=== PATIENT | male | born 1980 | race Caucasian/White ===

== ENCOUNTER 2023-12-22 07:51 | Outpatient (CLI) | payer OTHER, BC, SELFPAY ==
--- NOTE | ~2023-12-22 | CT_ITS ---
CT of the Abdomen: Indication: Renal mass Technique: 2.5 mm axial scans were obtained through the abdomen prior to and following intravenous a dministration of 100 cc of Omnipaque 350. Dose reduction technique was used on this scan by utilizing automated exposure control and iterative reconstruction technique. The dose-length product (DLP) was 2200.67 mGy-cm. Findings: Scans through the lung bases are unremarkable. The liver, spleen, pancreas, gallbladder, and adrenal glands are within normal limits. There is a 10 mm mass at the anterior margin of the right kidney, without distinct postcontrast enhancement (series 7 image 92). There is an additional 14 mm mass at the mid pole right kidney, partially exophytic, al so without apparent enhancement (series 7 image 1 7). Additional 7 mm left renal lesion is also witho ut apparent enhancement (series 7 image 102). No evidence of aortic aneurysm. No lymphadenopathy. Visualized bowel loops are unremarkable. No ascites. Impression: Small bilateral renal lesions, as above, without apparent enhancement, therefore most compatible with small simple cysts. Given small size, consider follow-up exam in one year to further ensure stabilit y. Reviewed, dictated and finalized at location M. Impression: Small bilateral renal lesions, as above, without apparent enhancement, therefor e most compatible with small simple cysts. Given small size, consider follow-up exam in one year to further ensure stability.
[2023-12-22 11:03] LABS: Estimated Glomerular Filt Rate > 60
== END 2023-12-22 07:52 | disposition home or self-care (01) ==
PROVIDERS: PCP Family Medicine; Visit Provider Urology
DX: N28.89 Other specified disorders of kidney and ureter (principal)
CPT/HCPCS: 74170; Q9967

== ENCOUNTER 2025-01-02 08:25 | Outpatient (CLI) | payer OTHER, SELFPAY ==
--- NOTE | ~2025-01-02 | CT_ITS ---
CT of the Abdomen: Indication: Renal mass COMPARISON: 12/22/2023 TECHNIQUE: Axial images of the abdomen were obtained before and after infusion of [100] cc of Isovue 300. Dose lowering technique and dose optimization was utilized. FINDINGS: [The lung bases are clear.] [The liver parenchyma is unremarkable.] [No intrahepatic mass or ductal dilatation is evident.] [The gallbladder is normal in appearance.] [The pancreas is unremarkable.] [The spleen is normal in size.] [The adrenal glands are symmetric in size.] [The kidneys demonstrate symmetric uptake of contrast.] 11 mm mass in the anterior margin of the right kidney is stable measured on axial image 80 previously measured 10 mm. Within the midpole is a 13.5 mm mass unchanged. Mass within the midpole of the left kidney is stable measuring 10 mm. [There is no intrarenal stone or hydronephrosis.] [The stomach and visualized small and large bowel loops are unremarkable.] [No free intraperitoneal fluid or air is evident.] [There is no pathologically enlarged lymphadenopathy.] [The aorta is normal in caliber and patency.] [The mesenteric arteries and renal arteries demonstrate normal caliber and patency.] [The lower thoracic and visualized lumbar vertebrae are in normal alignment.] IMPRESSION: 1. Nonenhancing lesions within the kidneys bilaterally are stable. Reviewed, dictated and finalized at location S.
--- OUTSIDE RECORDS SUMMARY | 2025-01-02 08:37 | XMS_ITS | Clinical Summary ---
Author Organization [facility] Address [address] [place] [address] Care Team Providers Care Supervisor Picking Crew Name Role Phone Eric Cunningham MD Primary Care Provider [phone] Allergies Active Allergy Reactions Criticality Noted Date Comments Sertraline Dizziness Low 08/07/2018 dizzy Topiramate Rash,Other (See comments) High 10/12/2021 Neurological issues Medications BD Luer-Keanu Syringe 3 mL 22 x 1 1/2 syringe Inject 200 mg into the muscle as instructed every 2 (two) weeks 12 each 3 Active omeprazole (PriLOSEC) 20 mg capsule TAKE 1 CAPSULE BY MOUTH EVERY DAY 90 capsule 1 5 Active lisinopriL (PRINIVIL,ZESTR IL) 20 mg tablet TAKE 1 TABLET BY MOUTH EVERY DAY 90 tablet 1 5 Active amLODIPine (NORVASC) 5 mg tablet TAKE 1 TABLET (5 MG TOTAL) BY MOUTH DAILY. 100 tablet 1 5 Active propranolol LA (INDERAL LA) 160 mg 24 hr capsule TAKE 1 CAPSULE BY MOUTH DAILY. 100 capsule 1 5 Active testosterone cypionate (DEPO-TESTOTERO NE) 200 mg/mL injection INJECT 1 ML (200 MG TOTAL) INTO THE MUSCLE INSTRUCTED EVERY 21 DAYS 1 mL 2 5 Active tirzepatide, weight loss, (Zepbound) 2.5 mg/0.5 mL solution vial Inject 0.5 mL (2.5 mg total) under the skin once a week 5 Active Active Problems Problem Noted Date Diagnosed Date Gastroenteritis 11/24/2024 Assessment & Plan (11/24/2024 8:49 AM CDT): Symptoms only x1 day. Dietary modification. Follow up if symptoms persist. Watch for signs of dehydration. Chronic left shoulder pain 10/30/2023 Assessment & Plan (02/05/2024 7:31 AM DAYLIGHT DRILLER): Symptoms have resolved. This was probably cervical radiculopathy. Assessment & Plan (10/30/2023 7:53 AM CDT): Left shoulder pain since tripping in September. Pain radiates into fingertips. Worse with driving and typing. Better with NSAIDs. This is actually likely cervical radiculopathy and he has found a regimen that adequately treats pain with some [id number] naproxen. He is no longer taking diclofenac. If he gets worse we could try short course of oral steroids but would hold off for now. He understands that he should not take naproxen if he is taking oral steroids. At times some numbness and tingling. Some pain in the neck as well. Acute pain of right knee 10/14/2023 Assessment & Plan (10/14/2023 9:55 AM CDT): Pain is more suprapatellar left but there is some give-way on anterior drawer test consider ligament or anterior cruciate tear versus bursitis aggravated by twisting injury. We will see if we can get an MRI. We will refer to Orthopedics. We will give him Erwinn Gastric ulcer without hemorrhage or perforation 05/18/2023 Right flank pain 03/12/2023 Assessment & Plan (03/13/2023 9:00 AM DAYLIGHT DRILLER): Some worsening of chronic right flank pain. This is not the 1st time he has had this pain it has been worse since . It stays in the same location with his of the posterior back low on the right side. The differential diagnosis is wide and of uncertain prognosis. We should repeat urine though he has no urinary symptoms. Could have a kidney stone or other renal pathology. We will also check CMP. We should also check CBC as he could have a low-grade infection. It could be muscular and I think this is the most likely cause. Is helped some by heat. It could be related to bony pathology of the ribs but I think this is less likely. Consider getting x-ray if not better. Viral upper respiratory tract infection 02/05/20 Assessment & Plan (02/04/2023 11:12 AM DAYLIGHT DRILLER): Viral versus atypical organism. Try Zithromax. Explain if viral no antibiotic will help. We will give him Medrol Dosepak as this has helped with cough previously. Other alternatives declined. Gastroesophageal reflux disease without esophagi tis 12/08/2022 Assessment & Plan (11/23/2024 7:53 AM CDT): Continue omeprazole at same dosage. Well controlled. Unable to taper the medicine. No alarm symptoms Assessment & Plan (12/08/2022 1:46 PM CDT): Chronic GERD for years, takes Tums p.r.n.. -Pepcid OTC p.r.n. -RECOMMENDATIONS given include: anti-reflux maneuvers, Avoid acidic foods like oranges and tomatoes., avoidance of spicy foods, avoid eating 3-4 hours before bed, elevation of the head of the bed, and weight loss -schedule EGD -The risks (risks of bleeding, infection, perforation requiring surgery, missed polyps/cancer, dental injury, aspiration pneumonia, anesthesia complications such as drug reaction and cardiopulmonary complications including rare chance of ), benefits, and alternatives of the planned procedure were explained to the patient who understands and consents to having procedure done. Chronic bilateral low back pain without sciatica 12/02/2022 Assessment & Plan (06/18/2023 4:01 PM CDT): Stable and not requiring prescription medication. Assessment & Plan (12/02/2022 10:06 AM CDT): Chronic low back worse x2 weeks. No history of injury. Worse with ambulation better with leaning forward. We will get x-rays of the back. Declined anti-inflammatory because history of GI bleeding on medication. Will try Tylenol. Declines tramadol or pain medicines because of potential side effects. Declines physical therapy today as recommended. He is going to chiropractor present. We will reconsider physical therapy at next visit. Crohn's disease with complication 06/30/2022 Assessment & Plan (12/08/2022 1:45 PM CDT): had rectal bleeding and diarrhea, last colonoscopy by Dr. Cano 05/2006 with terminal ileitis. has been on NSAIDs for back pain recently. Patient has been having white ulcers in his mouth since 02/2022. Had bright red blood per rectum one month ago. Patent describes having white plaques in his mouth, could be related to aphthous ulcers. Unclear if patient has true Crohn's disease versus terminal ileitis from NSAIDs. -avoid NSAIDs -order labs for further evaluation -schedule colonoscopy -The risks (risks of bleeding, infection, perforation requiring surgery, missed polyps/cancer, dental injury, aspiration pneumonia, anesthesia complications such as drug reaction and cardiopulmonary complications including rare chance of ), benefits, and alternatives of the planned procedure were explained to the patient who understands and consents to having procedure done. Assessment & Plan (06/30/2022 9:28 AM CDT): Since symptomatic with frequent bowel movements and oral lesions possibly related to Crohn's we should refer to GI. Oral lesion 06/30/2022 Assessment & Plan (06/30/2022 9:39 AM CDT): Recurring oral lesions. [facility] and not herpes. Could be due to Crohn's. Will refer for his Crohn's Oral herpes simplex infection 04/08/2022 Assessment & Plan (04/08/2022 11:44 AM DAYLIGHT DRILLER): He showed me a picture of some lesions on his tongue that are no longer there. The rash is almost faded at this time. Much less pain. I think we should not try and anti herpetic medicine at this time but if keeps recurring treatment should be considered. Also for any persistent changes will need ENT or Dermatology referral. Pre-diabetes 04/08/2022 Assessment & Plan (11/24/2024 9:00 AM CDT): A1c today continue Zepbound same dosage. He is getting set bowel directly from [facility] in the july increase his dosage and we may need to refill bound for him on paperwork rather than over the computer in December. We will re-evaluate A1c in December. He had an A1c done in October of 6.3. Assessment & Plan (08/12/2024 7:29 AM CDT): A1c is higher. 6.3. This is probably because he is off Ozempic. He will look into get compounded version of still available. We will start on metformin XR 500 mg daily. Assessment & Plan (02/05/2024 7:29 AM DAYLIGHT DRILLER): Improved with lower A1c today at 5.5 Assessment & Plan (10/30/2023 7:53 AM CDT): A1c next visit. Improved with lifestyle management. Patient was encouraged to decrease the sugar and starch in diet. This means avoiding juices and sugar sweetened drinks. Patient should limit REFINED carbohydrates such as bread, rice, cereal pasta, and mashed potatoes. Regular exercise for more than 30 minutes t most days was encouraged to further improve blood sugar. The main fruit to avoid are grapes , pineapple, and bananas. Encouraged to maintain vegetables. Assessment & Plan (06/18/2023 3:58 PM CDT): A1c today. Has been adequate control with lifestyle measures Assessment & Plan (03/13/2023 8:45 AM DAYLIGHT DRILLER): Increase dose of Ozempic. Assessment & Plan (12/26/2022 1:00 PM CDT): Adequate control with lifestyle measures but needs repeat A1c. Assessment & Plan (12/01/2022 11:33 AM CDT): Needs A1c. Patient was encouraged to decrease the sugar and starch in diet. This means avoiding juices and sugar sweetened drinks. Patient should limit REFINED carbohydrates such as bread, rice, cereal pasta, and mashed potatoes. Regular exercise for more than 30 minutes t most days was encouraged to further improve blood sugar. The main fruit to avoid are grapes , pineapple, and bananas. Encouraged to maintain vegetables. Assessment & Plan (06/30/2022 9:29 AM CDT): Needs repeat A1c. Patient was encouraged to decrease the sugar and starch in diet. This means avoiding juices and sugar sweetened drinks. Patient should limit REFINED carbohydrates such as bread, rice, cereal pasta, and mashed potatoes. Regular exercise for more than 30 minutes t most days was encouraged to further improve blood sugar. The main fruit to avoid are grapes , pineapple, and bananas. Encouraged to maintain vegetables. Assessment & Plan (04/08/2022 11:48 AM DAYLIGHT DRILLER): Recommend start metformin 500 mg daily A1c was 5.8 today. Declines medication. Will re-evaluate in 3-4 months with repeat A1c Patient was encouraged to decrease the sugar and starch in diet. This means avoiding juices and sugar sweetened drinks. Patient should limit REFINED carbohydrates such as bread, rice, cereal pasta, and mashed potatoes. Regular exercise for more than 30 minutes t most days was encouraged to further improve blood sugar. The main fruit to avoid are grapes , pineapple, and bananas. Encouraged to maintain vegetables. Canker sore 04/07/2022 Elevated hematocrit 01/06/2022 Assessment & Plan (01/06/2022 3:56 PM CDT): Some of this may be due to his treatment with testosterone. Recommend Hematology opinion. Recommend baby aspirin once a day. He has sleep apnea and is not able to tolerate CPAP. Suggested he contact Dr. Kelli baer office for alternative considerations. Hives 09/10/2021 Assessment & Plan (09/10/2021 1:41 PM CDT): Likely due to the Topamax. If rash recurs may consider substituting Diovan for lisinopril but he has been on the lisinopril for year and half. Chest pain 07/02/2021 Hypertension 07/02/2021 Assessment & Plan (11/23/2024 7:52 AM CDT): Continue amlodipine/lisinopril at same dosage. Well controlled. Assessment & Plan (08/11/2024 2:28 PM CDT): Continue amlodipine/Inderal/lisinopril at same dosage. Well controlled. Assessment & Plan (12/02/2022 10:04 AM CDT): Blood pressure better on higher dose of amlodipine and will continue amlodipine 10 mg along with lisinopril 20 mg and Inderal LA Inderal LA 160 mg Assessment & Plan (06/26/2022 9:44 AM CDT): Continue amlodipine/metoprolol/lisinopril at same dosage. Well controlled. Bilateral lower extremity edema 06/10/2021 Assessment & Plan (12/02/2022 10:04 AM CDT): Not significant at this time. He thinks it is worse on higher dose of amlodipine. Assessment & Plan (09/10/2021 1:40 PM CDT): No recurrence Assessment & Plan (07/04/2021 9:00 AM CDT): Much improved and the bulk of his edema was likely due to the amlodipine. Will continue with the lower dose amlodipine dosage. Edema minimal at this time. Assessment & Plan (06/10/2021 4:00 PM CDT): The differential diagnosis is wide and of uncertain prognosis. This could be due to the amlodipine. We will have him cut his amlodipine to 5 mg. He does have some shortness of breath when laying flat so we cannot exclude a cardiac issue. Need to check BNP We should check CBC because he has what appears to be petechiae in the feet. It could be due to renal problem but on May 28 he had a CMP that was relatively normal and normal liver functions so this is unlikely be related to liver problem. Shortness of breath is only when he is flat on his back but if he lays on his side he does not get shortness of breath. Chest x-ray in the ER was normal. He has no chest discomfort. Recommend echocardiogram but declined for now. Petechiae 06/10/2021 Assessment & Plan (06/10/2021 3:48 PM CDT): He has tiny non plan she red spots on the dorsum of his feet primarily but other spots on extremities so we need to consider checking CBC to rule out thrombocytopenia Morbid (severe) obesity due to excess calories 0 06/10/2021 Morbid obesity with BMI of 45.0-49.9, adult 05/22 Assessment & Plan (11/23/2024 7:49 AM CDT): BMI Follow-up includes: nutrition counseling and exercise counseling. Assessment & Plan (08/12/2024 7:30 AM CDT): BMI Follow-up includes: nutrition counseling and exercise counseling. Weight is up because off Ozempic and no longer covered by insurance. Suggested off-label trial of Topamax but side effects previously. Assessment & Plan (10/30/2023 7:53 AM CDT): BMI Follow-up includes: nutrition counseling and exercise counseling. Continue Ozempic he feels better and multiple ways on the Ozempic including improved energy with less fluctuation Assessment & Plan (06/18/2023 4:01 PM CDT): BMI Follow-up includes: nutrition counseling and exercise counseling. Taking semaglutide Assessment & Plan (12/26/2022 1:03 PM CDT): BMI Follow-up includes: nutrition counseling and exercise counseling. Assessment & Plan (12/01/2022 11:36 AM CDT): BMI Follow-up includes: nutrition counseling and exercise counseling. Assessment & Plan (06/26/2022 9:50 AM CDT): BMI Follow-up includes: nutrition counseling and exercise counseling. Assessment & Plan (04/07/2022 1:18 PM DAYLIGHT DRILLER): BMI Follow-up includes: nutrition counseling and exercise counseling. Assessment & Plan (01/05/2022 3:02 PM CDT): BMI Follow-up includes: nutrition counseling and exercise counseling. Assessment & Plan (06/10/2021 3:59 PM CDT): BMI Follow-up includes: nutrition counseling and exercise counseling. Loose stools 05/29/2021 Assessment & Plan (05/29/2021 1:44 PM DAYLIGHT DRILLER): Unclear if this is viral illness or a medication side effect. If persists may need further workup Chronic migraine without aur a without status migrainosus, not intractable 04/10/2021 Assessment & Plan (11/23/2024 7:54 AM CDT): Continue Inderal at same dosage. Well controlled. Assessment & Plan (08/12/2024 7:27 AM CDT): Continue Inderal at same dosage. Headaches are a little worse recently declines changing medicine at this time. Assessment & Plan (02/04/2024 9:57 AM DAYLIGHT DRILLER): Continue Inderal LA at same dosage. Well controlled. Assessment & Plan (10/29/2023 11:31 AM CDT): Continue Inderal at same dosage. Well controlled. Assessment & Plan (06/18/2023 3:54 PM CDT): Continue Inderal at same dosage. Well controlled. Assessment & Plan (12/26/2022 12:59 PM CDT): Continue Inderal at same dosage. Well controlled. Assessment & Plan (04/07/2022 1:15 PM DAYLIGHT DRILLER): Continue Inderal LA at same dosage. Well controlled. Assessment & Plan (01/05/2022 3:00 PM CDT): Continue Inderal at same dosage. Well controlled. Assessment & Plan (09/10/2021 1:40 PM CDT): Will continue the Inderal as it definitely does help the headaches. Will continue the same dosage for now. His headaches are actually a little bit better and we will keep him off the Topamax. Assessment & Plan (05/29/2021 1:58 PM DAYLIGHT DRILLER): Worsening of chronic migraines. Recommend increase Inderal LA to 160 mg daily. Also neurology referral Assessment & Plan (05/13/2021 9:52 AM DAYLIGHT DRILLER): No headache since last visit. Continue Inderal at same dosage. Well controlled. Assessment & Plan (04/10/2021 11:34 AM DAYLIGHT DRILLER): Continue lisinopril but add Inderal LA 120 mg once a day. Acute right ankle pain 04/03/2021 Tachycardia 04/03/2021 Assessment & Plan (09/09/2021 9:41 AM CDT): Continue Inderal at same dosage. Well controlled. Assessment & Plan (05/13/2021 9:51 AM DAYLIGHT DRILLER): Much improved with normal Holter exam. Continue Inderal at same dosage. Well controlled. Assessment & Plan (04/10/2021 11:33 AM DAYLIGHT DRILLER): Holter pending. Start Inderal LA 120 mg daily. Assessment & Plan (04/03/2021 9:44 AM DAYLIGHT DRILLER): We will get EKG and probably should do Holter monitor. EKG normal sinus rhythm rate 92 with normal intervals the left axis and nonspecific T-wave abnormality will get Holter. ANJELICA (obstructive sleep apnea) 04/03/2021 Assessment & Plan (02/19/2022 2:26 PM DAYLIGHT DRILLER): The patient was shown a variety of mask people the patient states that he will try and order a CPAP mask online. The patient states that he does want to try and use the CPAP. The patient was advised to call in if the pressures feel too strong or not strong enough. Assessment & Plan (07/02/2021 9:33 AM CDT): Due to the severity of his obstructive sleep apnea, I have recommended a CPAP titration study. Patient does not feel that he could tolerate such a study at this time. I have ordered the patient an auto titrating CPAP set at 5-20 cm water pressure with heated humidity and a full set of supplies. The patient will also be fitted for mask. The patient would like the [employer] in [place] if possible. Assessment & Plan (04/03/2021 9:21 AM DAYLIGHT DRILLER): Refer to Pulmonary Right foot pain 04/03/2021 Assessment & Plan (05/29/2021 1:57 PM DAYLIGHT DRILLER): Problem resolved with brace and never did see Podiatry Assessment & Plan (04/03/2021 9:36 AM DAYLIGHT DRILLER): Pain seems to be more in the foot in the ankle but we will x-ray both in will probably need podiatry referral Sinus pressure 03/20/2021 Bronchospasm 03/20/2021 Assessment & Plan (03/20/2021 2:21 PM DAYLIGHT DRILLER): Treat with prednisone x5 days Acute cough 03/20/2021 Assessment & Plan (02/29/2024 12:52 PM DAYLIGHT DRILLER): Viral versus atypical organism try Zithromax. Cheratussin. Patient is advised that opiates should only be used as needed. They can be habit-forming and may impair judgment even if drowsiness not noticed. Nothing dangerous should be done while taking these medicines such as driving. Discussed other alternatives for pain including NSAIDs, anticholinergic medication , anti seizure medication, behavioral management, physical therapy, physical modalities, and Tylenol. Assessment & Plan (03/20/2021 2:22 PM DAYLIGHT DRILLER): Some of this is due to bronchitis/sinusitis and some is due to bronchospasm, infection may be viral he tried amoxicillin already without benefit for over 3- 4 days we will give him is a Azithromycin and a short course of steroids Neoplasm of uncertain behavior of adnexa of skin 02/05/2021 Elevated serum glucose 06/18/2020 Assessment & Plan (09/09/2021 9:43 AM CDT): Recommend A1c. Patient was encouraged to decrease the sugar and starch in diet. This means avoiding juices and sugar sweetened drinks. Patient should limit REFINED carbohydrates such as bread, rice, cereal pasta, and mashed potatoes. Regular exercise for more than 30 minutes t most days was encouraged to further improve blood sugar. The main fruit to avoid are grapes , pineapple, and bananas. Encouraged to maintain vegetables. Assessment & Plan (02/04/2021 11:40 AM DAYLIGHT DRILLER): Slight elevated glucose and needs repeat labs. Patient was encouraged to decrease the sugar and starch in diet. This means avoiding juices and sugar sweetened drinks. Patient should limit REFINED carbohydrates such as bread, rice, cereal pasta, and mashed potatoes. Regular exercise for more than 30 minutes t most days was encouraged to further improve blood sugar. The main fruit to avoid are grapes , pineapple, and bananas. Encouraged to maintain vegetables. Assessment & Plan (06/18/2020 2:40 PM CDT): Slight elevation. Patient was encouraged to decrease the sugar and starch in diet. This means avoiding juices and sugar sweetened drinks. Patient should limit REFINED carbohydrates such as bread, rice, cereal pasta, and mashed potatoes. Regular exercise for more than 30 minutes t most days was encouraged to further improve blood sugar. The main fruit to avoid are grapes , pineapple, and bananas. Encouraged to maintain vegetables. Headache 06/06/2020 Assessment & Plan (12/01/2022 11:34 AM CDT): Continue Inderal at same dosage. Well controlled. Assessment & Plan (06/26/2022 9:49 AM CDT): Continue Inderal LA m at same dosage. Well controlled. Assessment & Plan (04/08/2022 11:41 AM DAYLIGHT DRILLER): This is a different type of headache and only occurs with fluctuation in blood sugar when he eats something that contains more sugar. Obviously needs to cut back on the sugar and refined starches we will check A1c today. Discussed possible use of metformin as there has been evidence of pre diabetes in the past. Assessment & Plan (06/06/2020 2:53 PM CDT): Headache is probably related to ear infection Low testosterone 06/06/2020 Assessment & Plan (11/23/2024 7:52 AM CDT): Continue testosterone supplementation at same dosage but needs repeat labs Assessment & Plan (08/11/2024 2:27 PM CDT): Continue testosterone injections at same dosage. Well controlled. We will need repeat level Assessment & Plan (02/05/2024 7:28 AM DAYLIGHT DRILLER): Continue testosterone at same dosage. Well controlled. We will need repeat level. Should check PSA. Assessment & Plan (10/29/2023 11:34 AM CDT): Continue testosterone injections Assessment & Plan (06/18/2023 3:56 PM CDT): Continue biweekly testosterone shots. Last testosterone level December and will need repeat testosterone level. Assessment & Plan (12/29/2022 9:32 AM CDT): Continue testosterone shots same dosage but needs repeat testosterone level. He is currently taking testosterone every 3 weeks since July. Assessment & Plan (12/01/2022 11:35 AM CDT): Continue by weekly shots but needs repeat testosterone level. Assessment & Plan (06/30/2022 9:37 AM CDT): Continue testosterone shots. Test results pending. Assessment & Plan (04/07/2022 1:17 PM DAYLIGHT DRILLER): Continue testosterone shots at same dosage but needs level to follow-up. Assessment & Plan (01/05/2022 2:59 PM CDT): Needs testosterone level. Continue testosterone shots Assessment & Plan (06/20/2020 9:34 AM CDT): He decided to see urologist for treatment of low testosterone. He has appointment next week. Assessment & Plan (06/06/2020 2:38 PM CDT): History of low testosterone treated by Urology he quit treatment because it was inconvenient. Symptoms re-emergence Prostatitis 06/06/2020 Overview (06/06/2020): Check urine and treat with Cipro or doxycycline Assessment & Plan (06/20/2020 9:35 AM CDT): Continue doxycycline at same dosage. Symptoms improved. Stressed the importance of continuing on medication for 4 months to decrease risk of relapse Assessment & Plan (06/06/2020 2:54 PM CDT): Will treat with doxycycline because of concomitant ear infection/recommend treat for 1 months to decrease the risk of infection Epididymitis 06/06/2020 Assessment & Plan (06/20/2020 9:34 AM CDT): Continue doxycycline at same dosage. Symptoms improved. Appears resolved with both frequency and intensity of symptoms improved. No swelling on exam today. Assessment & Plan (06/06/2020 2:52 PM CDT): Check urine and treat with Cipro or doxycycline. Will treat with doxycycline because of concomitant ear infection Suppurative otitis media of left ear 06/06/2020 Assessment & Plan (09/10/2020 6:51 PM CDT): Due to recurrent ear infection, pain, pressure and drainage from same ear patient instructed to be seen at the urgent care for further evaluation. Patient verbalized understanding and agreed to plan of care at this time. Assessment & Plan (06/20/2020 9:36 AM CDT): Symptoms resolved in no residual signs of infection on exam today per Assessment & Plan (06/06/2020 2:52 PM CDT): Will treat with doxycycline to try and find something the covers this and prostatitis Weight gain 01/23/2020 Assessment & Plan (01/24/2020 8:35 AM DAYLIGHT DRILLER): Patient was advised to lose weight. Discussed 1/2 to 1 lb per week as a good goal. Discussed that reducing weight by 500 calories per day should result in weight loss of about a lb per week. Encouraged efforts to maintain adequate protein of more than 60 g per day. Encouraged reducing refined starches and diet especially bread, rice, pasta, and cereal. Avoid juices and sugared drinks. Discussed that 5-10% weight loss can lead to improvement in health outcomes for weight related conditions. Discussed behavioral measures. Recommended regular weight monitoring as well as some moderate with a food diary.BMI Follow-up includes: nutrition counseling and exercise counseling. Also discussed various options including weight loss surgery and meal replacements. Adequate protein in diet. At least 60 g-try and limit refined carbohydrates Hypertension, essential 01/23/2020 Assessment & Plan (02/05/2024 7:30 AM DAYLIGHT DRILLER): Continue Inderal and lisinopril. Amlodipine dosage decreased because of dizziness continue at 5 mg. May need to cut blood pressure medicine back further if persistent dizziness. Discussed weight loss may need increased need for medications especially for blood pressure medicine. Assessment & Plan (10/29/2023 11:30 AM CDT): Continue amlodipine/lisinopril/Inderal at same dosage. Well controlled. Assessment & Plan (06/18/2023 3:53 PM CDT): Continue amlodipine/Inderal/lisinopril at same dosage. Well controlled. Assessment & Plan (12/26/2022 12:56 PM CDT): Continue amlodipine/lisinopril/Inderal LA at same dosage. Well controlled. Assessment & Plan (04/07/2022 1:15 PM DAYLIGHT DRILLER): Continue amlodipine/lisinopril/Inderal at same dosage. Well controlled. Assessment & Plan (01/05/2022 3:00 PM CDT): Continue Inderal/amlodipine/lisinopril at same dosage. Well controlled. Assessment & Plan (09/09/2021 9:41 AM CDT): Continue Inderal l/amlodipine at same dosage. Well controlled. Assessment & Plan (07/01/2021 1:47 PM CDT): Continue Inderal LA 160 mg/amlodipine 5 mg at same dosage. Well controlled. Assessment & Plan (06/10/2021 3:49 PM CDT): Improved. Continue Inderal same dosage but trying cut back on amlodipine to 5 mg daily. Assessment & Plan (05/29/2021 1:44 PM DAYLIGHT DRILLER): Worsening of blood pressure. Recommend increase Inderal to 160 mg daily. Continue amlodipine and lisinopril same dosage Assessment & Plan (05/13/2021 9:51 AM DAYLIGHT DRILLER): Continue Inderal/lisinopril at same dosage. Well controlled. Assessment & Plan (04/10/2021 11:33 AM DAYLIGHT DRILLER): Continue lisinopril but add Inderal LA once 120 mg daily re-evaluate few weeks. Blood pressures are somewhat labile and this may be better choice with beta-lia Assessment & Plan (04/03/2021 9:24 AM DAYLIGHT DRILLER): Continue lisinopril at same dosage. Well controlled. Assessment & Plan (03/20/2021 2:08 PM DAYLIGHT DRILLER): Worsening of chronic hypertension. Recommend increase lisinopril to 20 mg, some increased headaches since increased blood pressure. Assessment & Plan (02/04/2021 11:39 AM DAYLIGHT DRILLER): Continue lisinopril at same dosage. Well controlled. Assessment & Plan (06/06/2020 1:32 PM CDT): Continue lisinopril at same dosage. Well controlled. Assessment & Plan (01/23/2020 10:12 AM DAYLIGHT DRILLER): Continue medication at same dosage. Well controlled. Well adult exam 10/28/2018 Assessment & Plan (10/28/2018 11:58 AM CDT): Encouraged flu shot in fall. Lifestyle measures as discussed Class 3 obesity due to exces s calories without serious comorbidity in adult 07/16/2017 Endocrine disorder 01/09/2017 Hyperlipidemia 11/20/2015 Assessment & Plan (02/04/2021 11:39 AM DAYLIGHT DRILLER): Mild elevation with lifestyle management and needs repeat lipids next visit Assessment & Plan (06/20/2020 9:35 AM CDT): Stable mild elevation with dietary management. Lipids are slightly worse and encouraged dietary changes and weight loss Assessment & Plan (06/06/2020 1:33 PM CDT): Mild elevation with dietary management but needs repeat labs Assessment & Plan (01/23/2020 10:14 AM DAYLIGHT DRILLER): Needs labs. Previous lipids mild elevation with dietary management. Assessment & Plan (10/28/2018 11:57 AM CDT): Dietary management needs repeat labs Assessment & Plan (10/14/2018 1:47 PM CDT): Discussed that elevated triglycerides at best treated by diet. Encourage ever to keep weight down and decrease fat and starches and diet other than vegetables. Less bread, rice, cereal, and other refined carbohydrates. Needs repeat labs but declines today but will reconsider at next visit Resolved Problems Problem Noted Date Diagnosed Date Resolved Date Snoring 06/04/2021 07/02/2021 Assessment & Plan (06/04/2021 3:21 PM CDT): The patient was diagnosed with obstructive sleep apnea more than 7 years ago. His symptoms have worsened and he has gained weight. I have recommended proceeding with a nocturnal polysomnogram with a split night protocol if necessary and no MSLT. He will follow up here in 3 months. Rash 02/04/2021 02/05/2021 History of elevated glucose 01/23/2020 06/18/2020 Assessment & Plan (06/06/2020 1:32 PM CDT): Slight elevation. Needs repeat glucose. Patient was encouraged to decrease the sugar and starch in diet. This means avoiding juices and sugar sweetened drinks. Patient should limit REFINED carbohydrates such as bread, rice, cereal pasta, and mashed potatoes. Regular exercise for more than 30 minutes t most days was encouraged to further improve blood sugar. The main fruit to avoid are grapes , pineapple, and bananas. Encouraged to maintain vegetables. Assessment & Plan (01/23/2020 10:15 AM DAYLIGHT DRILLER): Most recent glucose normal. Patient was encouraged to decrease the sugar and starch in diet. This means avoiding juices and sugar sweetened drinks. Patient should limit REFINED carbohydrates such as bread, rice, cereal pasta, and mashed potatoes. Regular exercise for more than 30 minutes t most days was encouraged to further improve blood sugar. The main fruit to avoid are grapes , pineapple, and bananas. Encouraged to maintain vegetables. 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 Inclined to treat but will do strep screen. We will treat with Zithromax Morbid obesity with BMI of 40.0-44.9, adult 10/14/2018 06/18/2023 Assessment & Plan (03/13/2023 9:00 AM DAYLIGHT DRILLER): Maintain Ozempic at same dosage because of cost considerations. He has lost 6 lb by his own weight. Assessment & Plan (06/06/2020 1:33 PM CDT): Patient was advised to lose weight. Discussed 1/2 to 1 lb per week as a good goal. Discussed that reducing weight by 500 calories per day should result in weight loss of about a lb per week. Encouraged efforts to maintain adequate protein of more than 60 g per day. Encouraged reducing refined starches and diet especially bread, rice, pasta, and cereal. Avoid juices and sugared drinks. Discussed that 5-10% weight loss can lead to improvement in health outcomes for weight related conditions. Discussed behavioral measures. Recommended regular weight monitoring as well as some moderate with a food diary.BMI Follow-up includes: nutrition counseling and exercise counseling. Assessment & Plan (10/28/2018 11:57 AM CDT): Patient was advised to lose weight. Discussed 1/2 to 1 lb per week as a good goal. Discussed that reducing weight by 500 calories per day should result in weight loss of about a lb per week. Encouraged efforts to maintain adequate protein of more than 60 g per day. Encouraged reducing refined starches and diet especially bread, rice, pasta, and cereal. Avoid juices and sugared drinks. Discussed that 5-10% weight loss can lead to improvement in health outcomes for weight related conditions. Discussed behavioral measures. Recommended regular weight monitoring as well as some moderate with a food diary.BMI Follow-up includes: nutrition counseling and exercise counseling. Assessment & Plan (10/14/2018 11:59 AM CDT): Patient was advised to lose weight. Discussed 1/2 to 1 lb per week as a good goal. Discussed that reducing weight by 500 calories per day should result in weight loss of about a lb per week. Encouraged efforts to maintain adequate protein of more than 60 g per day. Encouraged reducing refined starches and diet especially bread, rice, pasta, and cereal. Avoid juices and sugared drinks. Discussed that 5-10% weight loss can lead to improvement in health outcomes for weight related conditions. Discussed behavioral measures. Recommended regular weight monitoring as well as some moderate with a food diary.BMI Follow-up includes: nutrition counseling and exercise counseling. Abnormal AST and ALT 10/12/2017 021 Assessment & Plan (06/06/2020 1:33 PM CDT): Most recently normal but needs repeat labs Assessment & Plan (10/28/2018 11:58 AM CDT): Discussed abnormal liver enzymes. Recommend avoid alcohol. Discussed that abnormal liver enzymes can be related to weight with extra fatty deposits in the liver. Discussed differential diagnosis. Discussed risk of progression to more serous liver problems such as cirrhosis or even liver cancer. Most likely secondary to fatty liver and weight. Needs repeat labs Assessment & Plan (10/14/2018 1:47 PM CDT): Discussed abnormal liver enzymes. Recommend avoid alcohol. Discussed that abnormal liver enzymes can be related to weight with extra fatty deposits in the liver. Discussed differential diagnosis. Discussed risk of progression to more serous liver problems such as cirrhosis or even liver cancer. Declines repeat labs today but will reconsider at next visit Chronic kidney disease, stage II (mild) 01/09/2017 01/23/2020 Assessment & Plan (10/28/2018 11:58 AM CDT): Avoid NSAIDs or PPIs as much as possible Assessment & Plan (10/14/2018 1:47 PM CDT): Avoid NSAIDs or PPIs as much as possible. Declines repeat labs today consider at next visit Hypertensive kidney disease 01/09/2017 01/23/2020 Assessment & Plan (10/28/2018 11:57 AM CDT): Continue medication at same dosage Assessment & Plan (10/14/2018 12:08 PM CDT): Continue medication at same dosage Encounters Date Type Department Care Team Description 11/24/2024 8:30 AM CDT Office Visit [facility] [address] [place] [address] Eric Cunningham MD Pre-diabetes (Primary Dx); Low testosterone; Primary hypertension; Gastroesophageal reflux disease without esophagitis; Chronic migraine without aura without status migrainosus, not intractable; Morbid obesity with BMI of 45.0-49.9, adult (HCC); Gastroenteritis 11/12/2024 Orders Only [facility] Health Information Management [address] [place] [address] Scanning, Provider from Last 3 Months Immunizations Immunization Administration Dates Next Due COVID-19 mRNA (NGDATA) 0.3 m L (30 mcg) vaccine (12 years and up) 01/10/2024 Flucelvax Influenza Quad 01/08/2019 Influenza, Quadrivalent, Christi l Culture-based MDCK, Preservative Free, Antibiotic Free, Intramuscular 01/21/2021,01/08/2019 Influenza, Quadrivalent, Spl it, Preservative Free, Intramuscular 12/29/2022,01/06/2022,12/16/2019,01/02 Influenza, Trivalent, Preser vative Free, Intramuscular 12/26/2016,12/26/2015 Influenza, Unspecified 11/23/2024(Deferr ed: Patient decision),08/12/2024(Deferred: Patient decision),01/10/2024,12/01/2022(Deferr ed: Patient decision),01/21/2021 Pfizer SARS-CoV-2 Monovalent Vaccination (12+ Yrs) PURPLE 12/14/2020,05/27/2020,05/09/2020 Tdap 01/01/2013 Surgical History Surgery Date Site/Laterality Comments HERNIA REPAIR 03/23/1983 - 03/22/1984 PLANTAR FASCIA RELEASE 03/23/2012 - 03/22/[address] Grimm at [facility] in [place] FOOT SURGERY 09/01/2014 Right rt spur medial EGR Dr. Box FOOT SURGERY 09/14/2014 Left lt spur medial EGR Dr. Box COLONOSCOPY ESOPHAGOGASTRODUODENOSCOPY 04/23/2023 - 05/21/2023 Medical History Medical History Date Comments Hypertension 1995 Chronic kidney disease 2015 Depression Impotence Migraine Sleep apnea GERD (gastroesophageal reflux disease) Pre-diabetes Peptic ulcer 04/2023 Family History Medical History Relation Name Comments Diabetes Father Vincent Perea Sr Diabetes Maternal Grandfather Koby La Cardoso Sr Heart disease Maternal Grandfather Koby La Cardoso Sr Stroke Maternal Grandfather Koby La Cardoso Sr Breast cancer Maternal Grandmother Talita Bazzier Heart disease Maternal Grandmother Talita Cardoso Breast cancer Mother Elizabeth Perea Diabetes Mother Elizabeth Perea Diabetes Paternal Grandfather Rico Perea Heart disease Paternal Grandfather Rico Perea Lung cancer Paternal Grandfather Rico Perea Stroke Paternal Grandfather Rico Perea Cystic fibrosis Sister Relation Name Status Comments Father Vincent Perea Sr Maternal Grandfather Koby Bazzier Sr Maternal Grandmother Talita Cardoso Mother Elizabeth Perea Paternal Grandfather Rico Perea Sister Social History Tobacco Use Types Packs/Day Years Used Date Smoking Tobacco: Never Cigarettes Smokeless Tobacco: Never Tobacco Cessation:Counseling Given: Not Answered Alcohol Use Standard Drinks/Week Comments Not Currently 0 (1 standard drink = 0.6 oz pur e alcohol) AUDIT-C Answer Date Recorded Q1: How often do you have a drink containing alcohol? Never 08/12/2024 Q2: How many drinks containi ng alcohol do you have on a typical day when you are drinking? Patient does not drink Q3: How often do you have si x or more drinks on one occasion? Never 08/12/2024 PHQ-2 Answer Date Recorded PHQ-2 Total Score (If total score is 3 or more points, staff should administer the PHQ-9) 0 11/24/2024 Personal Safety Answer Date Recorded Have you ever been in or are you currently in a harmful physical or emotional relationship or is someone making you feel afraid or unsafe? Denies 09/29/2023 Sex and Gender Information Value Date Recorded Sex Assigned at Not on file Legal Sex Male 8:16 AM DAYLIGHT DRILLER Gender Identity Male 11/20/2018 12:33 PM CDT Sexual Orientation Straight 11/20/2018 12 :33 PM CDT Obstetrics History Last Filed Vital Signs Vital Sign Reading Time Taken Comments Blood Pressure 124/82 11/24/2024 8:33 AM CDT Pulse 82 11/24/2024 8:33 AM CDT Temperature 37.3 C (99.2 F) 11/24/2024 8:33 AM CDT Respiratory Rate 20 11/24/2024 8:33 AM CDT Oxygen Saturation 96% 11/24/2024 8:33 AM CDT Inhaled Oxygen Concentration - - Weight 141.8 kg (312 lb 9.6 oz) 11/24/2024 8:33 AM CDT Height 170.2 cm (5' 7.01) 11/24/2024 8:33 AM CD T Body Mass Index 48.95 11/24/2024 8:33 AM CDT Plan of Treatment Health Maintenance Due Date Last Done Comments Hepatitis C Screening 1980 Varicella Vaccines (1 of 2 - 13+ 2-dose series) 1994 Hepatitis B Screening 07/11/1999 HPV Vaccines (1 - 3-dose SCDM series) 2008 Regular Well Visit/Exam 18-64 10/30/2019 10/29/2018 DTaP/Tdap/Td Vaccine (2 - Td or Tdap) 01/01/2023 01/01/2013 Influenza Vaccine (#1) 2025 , 12/29/2022, 01/06/2022, Additional history exists Postponed from 11/21/2024 (Patient declined, but will receive in the future) Depression Screening 11/24/2025 11/24/2024, 08/12/2024, 02/29/2024, Additional history exists Colon Cancer Screening-Colonoscopy 05/04/2028 05/04/2023, 05/23/2006 Covid-19 Vaccine Completed 01/10/2024, , 12/14/2020, Additional history exists Pneumococcal vaccine <65 Aged Out No longer eligible based on patient's age to complete this topic Procedures Procedure Name Priority Date/Time Associated Diagnosis Comments SCAN - LABS 11/12/2024 COLONOSCOPY 05/04/2023 10:09 AM DAYLIGHT DRILLER from Last 3 Months or Most Recently Relevant to Health Maintenance Results * SCAN - LABS (11/12/2024) us Provider Scanning Final Result * COLONOSCOPY (05/04/2023 10:09 AM DAYLIGHT DRILLER) Anatomical Region Laterality Modality Other Narrative Procedure Note Jarvis Stoddard MD - 05/04/2023 10:09 AM CST [facility] Patient Name: Vincent Perea Procedure Date: 05/04/2023 10:09 AM Date of : 1980 Admit Type: Outpatient Age: 42 Gender: Male Attending MD: Jarvis Stoddard M.D. Room: [facility] ENDOSCOPY ROOM 06 Note Status: Finalized Procedure: Colonoscopy Indications: Rectal bleeding, Possible Crohn's disease Referring MD: Eric Cunningham M.D. Providers: Jarvis Stoddard M.D. Medicines: Monitored Anesthesia Care Complications: No immediate complications. Estimated Blood Loss: Estimated blood loss: none. Procedure: Pre-Anesthesia Assessment: - Prior to the procedure, a History and Physicalwas performed, and patient medications and allergieswere reviewed. The risks and benefits of the procedureand the sedation options and risks were discussed withthe patient. All questions were answered and informed consent was obtained. Patient identification and proposed procedure were verified. After reviewingthe risks and benefits, the patient was deemed in satisfactory condition to undergo the procedure.The anesthesia plan was to use monitored anesthesiacare (MAC). Immediately prior to administration of medications, the patient was re-assessed foradequacy to receive sedatives. The heart rate, respiratory rate, oxygen saturations, blood pressure, adequacyof pulmonary ventilation, and response to care were monitored throughout the procedure. The physical status of the patient was re-assessed after the procedure. The benefits, risks and alternatives of theprocedure and sedation were discussed and informed consentwas obtained. All questions were answered. Please referto the signed informed consent document in the medical record. The scope was passed under direct vision.The PCF-SV158E colonoscope was introduced through theanus and advanced to the terminal ileum. The colonoscopy was performed without difficulty. The patient tolerated the procedure well. The quality of thebowel preparation was fair. Scope withdrawal time was 9 minutes. Prep was administered in a split dose. Findings: The perianal and digital rectal examinations were normal. The terminal ileum appeared normal. Biopsies were taken with a cold forceps for histology. Non-bleeding internal hemorrhoids were found during retroflexion. The hemorrhoids were small. The exam was otherwise without abnormality. Biopsies for histology were taken with a cold forceps from the right colon and left colon for evaluation of microscopic colitis. Impression: - Preparation of the colon was fair. - The examined portion of the ileum was normal. Biopsied. - Non-bleeding internal hemorrhoids. - The examination was otherwise normal. - Biopsies were taken with a cold forceps from the right colon and left colon for evaluation of microscopic colitis. Recommendation: - Patient has a contact number available for emergencies. The signs and symptoms of potential delayed complications were discussed with thepatient. Return to normal activities tomorrow. Written discharge instructions were provided to thepatient. - High fiber diet. - Continue present medications. - Await pathology results. - Repeat colonoscopy at age 46 for screeningpurposes. - Return to GI clinic as previously scheduled. Jarvis Stoddard M.D. Jarvis Stoddard M.D. 05/04/2023 10:37:10 AM . Number of Addenda: 0 Note Initiated On: 05/04/2023 10:09 AM Recognized by the [place] [employer] for promoting quality in endoscopy us Jarvis Stoddard MD ENDOSCOPY PROCEDURES Final Resul t from Last 3 Months or Most Recently Relevant to Health Maintenance Insurance [facility] H[facility]/PPO Address: [address] [address] [place] [address] [employer] CHOICE Care Teams Supervisor Picking Crew Relationship Specialty Start Date End Date Eric Cunningham MD PCP - General Family Practice 08/06/18
--- OUTSIDE RECORDS SUMMARY | 2025-01-02 08:37 | XMS_ITS | Encounter Summary ---
Author Organization [facility] Care Team Providers Care City Collector Name Role Phone Eric Cunningham MD Primary Care Provider [phone]- [phone] Encounter Details Date Type Department Care Team (Latest Contact Info) Description 07/16/2017 Orders Only [facility] ProviderEbony MD [address] [place] [id number] Social History Tobacco Use Types Packs/Day Years Used Date Smoking Tobacco: Never Assessed Sex and Gender Information Value Date Recorded Sex Assigned at Not on file Legal Sex Male 8:16 AM PENCILLER Gender Identity Male 11/20/2018 12:33 PM CDT Sexual Orientation Straight 11/20/2018 12 :33 PM CDT documented as of this encounter Plan of Treatment Not on file documented as of this encounter Procedures Procedure Name Priority Date/Time Associated Diagnosis Comments CARDIOLOGY REPORT 07/21/2017 12: 00 AM CDT documented in this encounter Results * CARDIOLOGY REPORT (07/21/2017 12:00 AM CDT) Anatomical Region Laterality Modality Other Narrative 07/21/2017 12:00 AM CDT Ordered by an unspecified provider. Historical Provider [facility] GISSELLE FISCHER Final Result documented in this encounter Visit Diagnoses Not on filedocumented in this encounter Additional Health Concerns Infection Onset Date Last Indicated Resolved Time COVID: Suspected 08/02/2019 08/02/2019 08/04/2019 3:10 AM CDT Respiratory Infection (PETROS), contact + droplet Comment:Automatically added due to negative COVID-19 result. 08/04/2019 08/04/2019 08/18/2019 3:0 5 AM CDT documented as of this encounter Care Teams City Collector Relationship Specialty Start Date End Date Eric Cunningham MD PCP - General Family Practice 08/06/18 documented as of this encounter
--- OUTSIDE RECORDS SUMMARY | 2025-01-02 08:37 | XMS_ITS | Encounter Summary ---
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 Gender Identity Male 11/20/2018 12:33 PM CDT Sexual Orientation Straight 11/20/2018 12 :33 PM CDT documented as of this encounter Plan of Treatment Not on file documented as of this encounter Procedures Procedure Name Priority Date/Time Associated Diagnosis Comments CARDIOLOGY REPORT 01/24/2016 12: 00 AM CDT documented in this encounter Results * CARDIOLOGY REPORT (01/24/2016 12:00 AM CDT) Anatomical Region Laterality Modality Other Narrative 01/24/2016 12:00 AM CDT Ordered by an unspecified [...] documented as of this encounter Care Teams Mortgage Loan Underwriter Relationship Specialty Start Date End Date Eric Cunningham MD PCP - General Family Practice 08/06/18 documented as of this encounter
--- OUTSIDE RECORDS SUMMARY | 2025-01-02 08:37 | XMS_ITS | Encounter Summary ---
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 Historical Provider Final Res ult documented in this encounter Visit Diagnoses Not on filedocumented in this encounter Additional Health Concerns Infection Onset Date Last Indicated Resolved Time COVID: Suspected 08/02/2019 08/02/2019 08/04/2019 3:10 AM CDT Respiratory Infection (PETROS), contact + droplet Comment:Automatically added due to negative COVID-19 result. 08/04/2019 08/04/2019 08/18/2019 3:0 5 AM CDT documented as of this encounter Care Teams Physician Pediatrician Relationship Specialty Start Date End Date Eric Cunningham MD PCP - General Family Practice 08/06/18 documented as of this encounter
--- OUTSIDE RECORDS SUMMARY | 2025-01-02 08:37 | XMS_ITS | Encounter Summary ---
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 Gender Identity Male 11/20/2018 12:33 PM CDT Sexual Orientation Straight 11/20/2018 12 :33 PM CDT documented as of this encounter Plan of Treatment Not on file documented as of this encounter Procedures Procedure Name Priority Date/Time Associated Diagnosis Comments COLONOSCOPY - SCAN 06/19/2016 12 :00 AM CDT documented in this encounter Results * COLONOSCOPY - SCAN (06/19/2016 12:00 AM CDT) Narrative 06/19/2016 12:00 AM CDT Ordered by an unspecified [...] documented as of this encounter Care Teams Ferry Engineer Relationship Specialty Start Date End Date Eric Cunningham MD PCP - General Family Practice 08/06/18 documented as of this encounter
--- OUTSIDE RECORDS SUMMARY | 2025-01-02 08:37 | XMS_ITS | Clinical Summary ---
Author Organization [facility] Address [address] [place] [id number] Care Team Providers Care Real Estate Valuer Name Role Phone Eric Cunningham MD Primary Care Provider [phone] Milton Reyes MD Unavailable [phone] Allergies No known active allergies Medications lisinopril 10 MG tablet Take 1 tablet by mouth daily. 06/29/2017 Active testosterone cypionate 200 MG/ML injection Inject 1 mL into the muscle every 14 (fourteen) days. 5 07/07/2017 Active Active Problems Problem Noted Date Diagnosed Date Class 3 obesity due to exces s calories without serious comorbidity in adult 07/16/2017 Chest pain Hypertension Family History Medical History Relation Comments Stroke Maternal Grandfather Relation Status Comments Father Alive Maternal Grandfather (Age 67) Maternal Grandmother (Age 73) Mother Alive Paternal Grandfather (Age 71) Paternal Grandmother (Age 61) Sister Alive Social History Tobacco Use Types Packs/Day Years Used Date Smoking Tobacco: Never Smokeless Tobacco: Never Alcohol Use Standard Drinks/Week Comments No 0 (1 standard drink = 0.6 oz pur e alcohol) Sex and Gender Information Value Date Recorded Sex Assigned at Not on file Legal Sex Male 9:38 AM CDT Gender Identity Not on file Sexual Orientation Not on file Occupation Industry Job Start Date Job End Date TEACHER Not on file Not on file Not on file Last Filed Vital Signs Vital Sign Reading Time Taken Comments Blood Pressure 120/80 07/16/2017 3:21 PM CDT ret aken by Pulse 105 07/16/2017 1:27 PM CDT Temperature - - Respiratory Rate 25 07/15/2017 12:50 PM CDT Oxygen Saturation 97% 07/16/2017 1:27 PM CDT Inhaled Oxygen Concentration - - Weight 126.1 kg (278 lb) 07/16/2017 1:27 PM CDT Height 170.2 cm (5' 7) 07/16/2017 1:27 PM CDT Body Mass Index 43.54 07/16/2017 1:27 PM CDT Plan of Treatment Health Maintenance Due Date Last Done Comments Annual Physical 1984 Hepatitis C 07/11/1999 DTaP, Tdap and Td Vaccines ( 1 - Tdap) 2000 Hepatitis B Vaccines (1 of 3 - 19+ 3-dose series) 2000 HPV Vaccines (1 - 3-dose SCD M series) 2008 COVID-19 Vaccine ( - 2023-2 5 season) 2024 Influenza Adult (#1) 2024 01/21/2021 Meningococcal B Vaccine Aged Out No l onger eligible based on patient's age to complete this topic Meningococcal Vaccine Aged Out No rodriguez franky eligible based on patient's age to complete this topic Pneumococcal Vaccine: Pediat rics (0 to 5 Years) and At-Risk Patients (6 to 49 Years) Aged Out No longer eligi ble based on patient's age to complete this topic RSV Immunizations Under 20 Months Aged Out No longer eligible based on patient's age to complete this topic Insurance [facility] Care Teams Real Estate Valuer Relationship Specialty Start Date End Date Eric Cunningham MD [address] [place] [address] PCP - General INTERNAL MEDICINE 07/15/17 Milton Reyes MD [address] [place] [address] Bertin Warehouse Engineer CARDIOVASCULAR DISEASE 06/21/17
== END 2025-01-02 08:26 | disposition home or self-care (01) ==
PROVIDERS: PCP Family Medicine; Visit Provider Urology
DX: N28.89 Other specified disorders of kidney and ureter (principal)
CPT/HCPCS: 74170; Q9967